=== PATIENT | male | born 1965 | race African-American/Black ===

== ENCOUNTER 2019-02-09 13:41 | Outpatient (RCR) | payer BC, MEDICARE | END 2019-04-02 | disposition home or self-care (01) | LOC: ONC 13:41 | PROVIDERS: ATTEND Radiology Radiation Oncology | DX: Z51.0 Encounter for antineoplastic radiation therapy (principal); C81.01 Nodular lymphocyte predominant Hodgkin lymphoma, lymph nodes of head, face, and neck | CPT/HCPCS: 77300; 77301; 77334; 77336; 77338; 77386; 99204 ==